=== PATIENT | male | born 1980 ===

== ENCOUNTER 2016-10-07 11:07 | Emergency (ER) | payer OTHER ==
[2016-10-07 11:25] VITALS: BP 155/77
--- NOTE | 2016-10-07 11:32 | UC ---
Throat Pain/Nasal Tawanda HPI - HPI Summary HPI Summary: pt c/o nasal congestion, sinus pressure, NAIR, PND X 9 days. - History of Current Complaint Chief Complaint: UCRespiratory Stated Complaint: SINUS ISSUE Time Seen by Provider: 10/07/16 11:18 Hx Obtained From: Patient Onset/Duration: Gradual Onset, Lasting Days - 9 days Severity: Moderate Cough: Nonproductive - Epiglottits Risk Factors Epiglottis Risk Factors: Negative - Allergies/Home Medications Allergies/Adverse Reactions: Allergies Allergy/AdvReac Type Severity Reaction Status Date / Time Benzonatate [From Tessalon] Allergy See Comment Verified 10/07/16 11:17 Home Medications: Home Medications Lisinopril [Zestril 10 MG-] 10 mg PO DAILY 10/07/16 [History Confirmed 10/07/16] Metformin HCl [Glucophage Xr] 750 mg PO BID 10/07/16 [History Confirmed 10/07/16 ] Multiple Vitamin [Multi Vitamin] 1 tab PO DAILY 10/07/16 [History Confirmed 12/19] PMH/Surg Hx/FS Hx/Imm Hx Previously Healthy: No - see PMH Endocrine History Of: Reports: Diabetes Cardiovascular History Of: Reports: Hypertension - Surgical History Surgical History: Yes Surgery Procedure, Year, and Place: tonsillectomy - Family History Known Family History: Positive: Other - positive [facility] for URI - Social History Alcohol Use: Occasionally Substance Use Type: None Smoking Status (MU): Former Smoker - Immunization History Most Recent Influenza Vaccination: fall 2015 Most Recent Pneumonia Vaccination: 2014 Review of Systems Constitutional: Chills, Fatigue Skin: Negative Eyes: Negative ENT: Other - nasal congestion, sinus pressure, Respiratory: Cough Cardiovascular: Negative Gastrointestinal: Negative Genitourinary: Negative Motor: Negative Neurovascular: Negative Musculoskeletal: Negative Neurological: Headache Psychological: Negative All Other Systems Reviewed And Are Negative: Yes Physical Exam Triage Information Reviewed: Yes Appearance: Well-Appearing Vital Signs: Initial Vital Signs Temp 98.9 F 10/07/16 11:19 Pulse 68 10/07/16 11:19 Resp 16 10/07/16 11:19 BP 155/77 10/07/16 11:19 Pulse Ox 100 10/07/16 11:19 Vital Signs Reviewed: Yes ENT: Positive: Nasal congestion, TM bulging - bilateral, Other: - frontal and maxillary sinus tenderness Neck exam: Normal Respiratory Exam: Normal Cardiovascular Exam: Normal Musculoskeletal Exam: Normal Neurological Exam: Normal Psychological Exam: Normal Skin Exam: Normal Throat Pain/Nasal Course/Dx - Differential Dx/Diagnosis Differential Diagnosis/HQI/PQRI: Sinusitis, URI Provider Diagnoses: sinusitis Discharge - Discharge Plan Condition: Stable Disposition: HOME Prescriptions: Amoxicillin (*) 875 mg PO BID #20 tab Patient Education Materials: Sinusitis (ED) Referrals: [facility] [Outside]
== END 2016-10-07 11:40 | disposition home or self-care (01) ==
LOC: UCEAST 11:07
DX: J32.9 Chronic sinusitis, unspecified (principal); E11.9 Type 2 diabetes mellitus without complications; Z79.84 Long term (current) use of oral hypoglycemic drugs; I10 Essential (primary) hypertension; Z88.8 Allergy status to other drugs, medicaments and biological substances; Z87.891 Personal history of nicotine dependence
CPT/HCPCS: 99202; G0463

== ENCOUNTER 2017-01-01 08:52 | Emergency (ER) | payer OTHER ==
--- NOTE | 2017-01-01 09:33 | UC ---
Radha Marroquin SooYoung, scribed for Bernie Holt MD on 01/01/17 at 0908 . General HPI - HPI Summary HPI Summary: A 36 y/o M presents to E with c/o sore throat "in my sinuses" onset 5 days ago. Associated sx include sinus and chest congestion, productive cough (yellow- brown phlegm), burning in chest with cough, clogged ears mostly resolved. Pt with coworker with simialr sx - dx bronchitis last week. Denies dental pain, fever, chills, n/v, dysphagia. Pt took Mucinex D and Flonase last night. Pt with h/o environmental allergies. Pt is a diabetic on metformin PMHx: multiple episodes of sinusitis, last episode in October 2016. Denies having allergies, but this is his first spring in [place]. Pt notes his coworker had bronchitis last week. Pt has DM and HTN. Former smoker. Patient's medication reviewed this visit. - History of Current Complaint Stated Complaint: SINUS COMPLAINT Hx Obtained From: Patient Onset/Duration: Gradual Onset, Lasting Days, Still Present Timing: Constant Current Severity: Moderate Pain Intensity: 4 - out of 10 Associated Signs & Symptoms: Positive: Cough, Chest Pain, Other - pos: clogged ears; neg: dental pain, chills, dysphagia. Negative: Fever, Nausea, Vomiting - Allergy/Home Medications Allergies/Adverse Reactions: Allergies Allergy/AdvReac Type Severity Reaction Status Date / Time Benzonatate [From Tessalon] Allergy See Comment Verified 10/07/16 11:17 PMH/Surg Hx/FS Hx/Imm Hx Previously Healthy: No Endocrine History Of: Reports: Diabetes Denies: Thyroid Disease Cardiovascular History Of: Reports: Hypertension Denies: Cardiac Disorders Respiratory History Of: Denies: COPD, Asthma GI/ History Of: Denies: Ulcer - Surgical History Surgical History: Yes Surgery Procedure, Year, and Place: tonsillectomy - Family History Known Family History: Positive: Cardiac Disease, Hypertension, Diabetes, Other - positive [facility] for URI - Social History Occupation: Employed Full-time Lives: Alone Alcohol Use: Occasionally Substance Use Type: None Smoking Status (MU): Former Smoker Have You Smoked in the Last Year: No When Did the Patient Quit Smoking/Using Tobacco: 5 years ago - Immunization History Most Recent Influenza Vaccination: fall 2015 Most Recent Pneumonia Vaccination: 2014 Review of Systems Constitutional: Negative Skin: Negative Eyes: Negative ENT: Sore Throat, Ear Ache, Nasal Discharge, Other - pos: cough and sinus congestion Respiratory: Cough - productive, brown Cardiovascular: Negative Gastrointestinal: Negative Genitourinary: Negative Motor: Negative Neurovascular: Negative Musculoskeletal: Negative Neurological: Negative Psychological: Negative All Other Systems Reviewed And Are Negative: Yes Physical Exam Triage Information Reviewed: Yes Appearance: Well-Appearing, No Pain Distress, Well-Nourished Vital Signs: Initial Vital Signs Temp 97.4 F 01/01/17 08:56 Pulse 84 01/01/17 08:56 Resp 20 01/01/17 08:56 BP 141/85 01/01/17 08:56 Pulse Ox 99 01/01/17 08:56 Vital Signs Reviewed: Yes Eye Exam: Normal Eyes: Positive: Conjunctiva Clear. Negative: Discharge ENT Exam: Normal ENT: Positive: Normal ENT inspection, Pharynx normal - + thick yellow-green PND no exudate, no erythema, Nasal congestion - turbinates inflammed and boggy, Nasal drainage. Negative: TMs normal - + fluid b/l TM R>L no erythema, no retraction, TM bulging Dental Exam: Normal Neck exam: Normal Neck: Positive: Supple, Nontender, No Lymphadenopathy Respiratory Exam: Normal Respiratory: Positive: Chest non-tender, Lungs clear, Normal breath sounds. Negative: Wheezing Cardiovascular Exam: Normal Cardiovascular: Positive: RRR, No Murmur, Pulses Normal, Brisk Capillary Refill Abdominal Exam: Normal Abdomen Description: Positive: Nontender, No Organomegaly, Soft Bowel Sounds: Positive: Present Musculoskeletal Exam: Normal Neurological Exam: Normal Neurological: Positive: Alert Psychological Exam: Normal Skin Exam: Normal Course/Dx - Course Course Of Treatment: Blood pressure noted and patient informed to follow up with PCP. Pt with nasal congestion, pnd, cough x 5 days - pt is diabetic with h /o recurrent sinusitis. last abx October. Pt on flonase, mucinex-D. Will give Rx zithromax, d/w pt secretion hygeine. PCP f/u. return prn - Differential Dx - Multi-Symptom Provider Diagnoses: sinusitis Discharge - Discharge Plan Condition: Stable Disposition: HOME Prescriptions: Azithromyxin PACO (NF) [Z-Paco (Zithromax) 250 mg tabs #6] 2 tab PO .TODAY, THEN 1 DAILY #6 tab Patient Education Materials: Rhinosinusitis (ED) Referrals: Rodolfo Abad DO [Primary Care Provider] - Additional Instructions: - Stay well hydrated. Drink plenty of non-alcoholic, non-caffinated beverages. - - After you have been on antibiotics for 2 days - change your toothbrush and your pillowcase. These infections are spread by secretions - do NOT share eating or drinking utensils - clean items you share with other people such as cell phones, computer mouse, TV remote, computer tablets, etc - Alternate ibuprofen (Advil, Motrin) 600mg and Tylenol every 3 hours for pain or fever. Take with food. Do NOT take for more than 4-5 days. - continue with flonase and decongestant - Call your doctor or return with any questions or concerns The documentation as recorded by the Radha castellanos SooYoung accurately reflects the service I personally performed and the decisions made by me, Bernie Holt MD.
== END 2017-01-01 09:40 | disposition home or self-care (01) ==
LOC: UCEAST 08:52
DX: J32.9 Chronic sinusitis, unspecified (principal); E11.9 Type 2 diabetes mellitus without complications; I10 Essential (primary) hypertension; Z87.891 Personal history of nicotine dependence
CPT/HCPCS: 99212; G0463

== ENCOUNTER 2019-01-06 10:14 | Emergency (ER) | payer BC, OTHER ==
--- NOTE | 2019-01-06 12:30 | UC ---
UC General HPI - HPI Summary HPI Summary: 38-year-old male presents with complaints of mild numbness to the right side of his face with some right eye dryness and mild facial droop. 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 He also complains of a swollen, tender, red lesion to the right ear canal. Denies fever, chills, headache, visual disturbances, dizziness , numbness, tingling, weakness of his extremities, chest pain, or shortness of breath. - History of Current Complaint Chief Complaint: UCGeneralIllness Stated Complaint: FACUAL NUMBING Time Seen by Provider: 01/06/19 12:00 Hx Obtained From: Patient Pain Intensity: 3 - Allergy/Home Medications Allergies/Adverse Reactions: Allergies Allergy/AdvReac Type Severity Reaction Status Date / Time benzonatate Allergy Dizziness Verified 01/06/19 10:20 [From Sami Ashraf] Home Medications: Home Medications Betamethasone Shilpi 0.1% CM(NF) [Valisone 0.1% CM(NF)] 01/06/19 [History] Tenofovir/Emtricitab 200/300 * [Truvada 200/300 mg*] 1 tab PO DAILY 01/06/19 [ History Confirmed 01/06/19] PMH/Surg Hx/FS Hx/Imm Hx - Additional Past Medical History Additional PMH: Recurrent Hodge's palsy Endocrine History: Diabetes Cardiovascular History: Hypertension - Surgical History Surgical History: Yes Surgery Procedure, Year, and Place: tonsillectomy - Family History Known Family History: Positive: Cardiac Disease, Hypertension, Diabetes, Other - positive [facility] for URI - Social History Occupation: Employed Full-time Lives: Alone Alcohol Use: Occasionally Substance Use Type: None Smoking Status (MU): Former Smoker Have You Smoked in the Last Year: No When Did the Patient Quit Smoking/Using Tobacco: 5 years ago - Immunization History Most Recent Influenza Vaccination: fall 2015 Most Recent Pneumonia Vaccination: 2014 Review of Systems All Other Systems Reviewed And Are Negative: Yes Constitutional: Negative: Fever, Chills Eyes: Negative: Blurred Vision, Diplopia, Drainage, Eye Redness, Photophobia ENT: Positive: Ear Ache - ear canal Respiratory: Positive: Negative Cardiovascular: Positive: Negative Gastrointestinal: Positive: Negative Genitourinary: Positive: Negative Musculoskeletal: Positive: Negative Neurological: Positive: Numbness - right side facial. Negative: Headache, Weakness, Paresthesia Is Patient Immunocompromised?: No Physical Exam - Summary Physical Exam Summary: GENERAL APPEARANCE: Well developed, well nourished, alert and cooperative, and appears to be in no acute distress. HEAD: Atraumatic. normocephalic. EYES: Conjunctiva clear. No drainage. PERRL, EOM intact. Vision is grossly intact. EARS: Small, draining abscess noted to the proximal, inferior right ear canal. Tympanic membranes clear, hearing grossly intact. NOSE: No nasal discharge. THROAT: Pharynx normal No tonsilar inflammation, swelling, exudate, or lesions. Uvula midline. NECK: Neck supple, non-tender without lymphadenopathy. CARDIAC: Normal S1 and S2. No S3, S4 or murmurs. Rhythm is regular. There is no peripheral edema, cyanosis or pallor. Extremities are warm and well perfused. Capillary refill is less than 2 seconds. Peripheral pulses intact. LUNGS: Clear to auscultation without rales, rhonchi, wheezing or diminished breath sounds. ABDOMEN: Positive bowel sounds. Soft, nondistended, nontender. No guarding or rebound. No masses or hepatosplenomegally. MUSKULOSKELETAL: ROM intact to all extremities. No joint erythema or tenderness. Normal muscular development. Normal gait. BACK: Examination of the spine reveals normal gait and posture, no spinal deformity or tenderness, decreased range of motion or muscular spasm. EXTREMITIES: No significant deformity or joint abnormality. No edema. NEUROLOGICAL: Mild ptosis of the right eye. Able to fully close the eye. Mild right facial droop noted with smile. Strength and sensation symmetric and intact throughout. Reflexes 2+ throughout. Cerebellar testing normal. SKIN: Skin normal color, texture and turgor with no lesions or eruptions. Triage Information Reviewed: Yes Vital Signs: Initial Vital Signs Temp 98 F 01/06/19 10:23 Pulse 70 01/06/19 10:23 Resp 16 01/06/19 10:23 BP 157/93 01/06/19 10:23 Pulse Ox 100 01/06/19 10:23 Vital Signs Reviewed: Yes Course/Dx - Course Course Of Treatment: 38-year-old male presents with complaints of mild numbness to the right side of his face with some right eye dryness and mild facial droop. 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 He also complains of a swollen, tender, red lesion to the right ear canal. Denies fever, chills, headache, visual disturbances, dizziness , numbness, tingling, weakness of his extremities, chest pain, or shortness of breath. Afebrile. Hypertensive otherwise vital signs stable. Patient had mild ptosis of the right eye but was able to fully close the eye, mild right facial droop noted with smile, and was otherwise neurologically intact. He also had a small, draining abscess noted to the proximal, inferior right ear canal but otherwise unremarkable exam. Will treat him for Hodge's palsy with a course of prednisone 60 mg daily 7 days and valacyclovir 1000 mg 3 times a day 7 days. Since the abscess in his ear is already draining and incision and drainage was deferred at this time. Will start him on cephalexin 500 mg 3 times a day 7 days and recommended warm moist compresses. He is to follow-up with his primary care provider in 3-5 days for recheck of his symptoms. Anticipatory guidance and warning symptoms were reviewed with the patient. Verbalizes understanding and agrees with plan of care. - Differential Dx - Multi-Symptom Differential Diagnoses: Other - Hodge's palsy, facial neuroma - Diagnoses Provider Diagnosis: Hodge's palsy, Abscess of right ear canal Discharge - Sign-Out/Discharge Documenting (check all that apply): Patient Departure All imaging exams completed and their final reports reviewed: No Studies - Discharge Plan Condition: Stable Disposition: HOME Prescriptions: cephALEXin [Keflex] 500 mg PO TID #21 capsule predniSONE TAB* [Deltasone 20 MG TAB*] 60 mg PO DAILY #21 tab Valacyclovir HCl [Valacyclovir] 1 gm PO TID #21 tab Patient Education Materials: Hodge Palsy (ED), Abscess (ED) Referrals: Marcos Nam MD [Primary Care Provider] - 3 Days Additional Instructions: Your history and exam are consistent with Hodge's palsy. We will start you on an oral steroid and antiviral medication. Start prednisone 60 mg (3 tabs) once daily for 7 days. Start valacyclovir 1000 mg 3 times a day for 7 days. Use artificial tears eyedrops as directed to help with any eye dryness. You will also have a small abscess in the right ear canal that is actively draining. We will start you on an antibiotic to treat the infection. Start cephalexin 500 mg 3 times a day for 5 days. Be sure to take the entire course even if feeling better. You can try doing some warm moist compresses to help encourage drainage. Follow-up with your primary care provider in 3-5 days for recheck of symptoms. Seek immediate medical attention in the emergency room if you develop fever greater than 100.5 F, have a severe headache, visual disturbances, slurred or difficulty speaking, difficulty swallowing, weakness, numbness, or tingling in the arms or legs, or have any worsening of symptoms. - Billing Disposition and Condition Condition: STABLE Disposition: Home
[2019-01-06 12:40] VITALS: BP 168/103
== END 2019-01-06 12:56 | disposition home or self-care (01) ==
LOC: UCEAST 10:14
DX: G51.0 Bell's palsy (principal); H60.01 Abscess of right external ear; E11.9 Type 2 diabetes mellitus without complications; Z88.8 Allergy status to other drugs, medicaments and biological substances; Z87.891 Personal history of nicotine dependence
CPT/HCPCS: 99212; G0463